=== PATIENT | male | born 1975 | race Two or more races ===

== ENCOUNTER 2020-04-29 19:50 | Emergency (ER) | payer MEDICAID ==
[~2020-04-29] VITALS: Ht 172.7 cm; Wt 90.7 kg
[2020-04-29 20:01] VITALS: Ht 172.7 cm; Wt 90.7 kg
[2020-04-30 00:20] VITALS: BP 141/94
== END 2020-04-30 00:20 | disposition home or self-care (01) ==
LOC: ED 19:50
DX: S62.631A Displaced fracture of distal phalanx of left index finger, initial encounter for closed fracture (principal); S62.635A Displaced fracture of distal phalanx of left ring finger, initial encounter for closed fracture; S61.213A Laceration without foreign body of left middle finger without damage to nail, initial encounter; S61.215A Laceration without foreign body of left ring finger without damage to nail, initial encounter; W23.0XXA Caught, crushed, jammed, or pinched between moving objects, initial encounter; Y93.89 Activity, other specified; Y92.89 Other specified places as the place of occurrence of the external cause; Y99.8 Other external cause status
CPT/HCPCS: 90715; J1885; J2001; J2270; Q0092; Q0162